=== PATIENT | female | born 1945 | race Two or more races ===

== ENCOUNTER 2017-02-22 11:21 | Inpatient (IN) | payer MEDICARE, OTHER ==
[~2017-02-22] VITALS: Ht 162.6 cm; Wt 66.0 kg
[~2017-02-22 11:21] MED LIST: SIMV10TA6 PO; TRAM50TA2
[2017-02-22] MEDS ORDERED: IV NS 0.9% 1,000 ML ONE (12:00)
[2017-02-22] MEDS ORDERED: ONDANSETRON HCL/PF 4 MG/2 ML VIAL ONE ×2 (12:00→21:51)
[2017-02-22] MEDS ORDERED: IV SET PRIMARY 1 EA INFUS.SET MC ONE (12:00)
[2017-02-22] MEDS ORDERED: ONDANSETRON HCL/PF 4 MG/2 ML VIAL IVP ONE (12:00)
[2017-02-22] MEDS ORDERED: MORPHINE SULFATE INJ 2 MG/ML DISP.SYRIN IV ONE ×2 (12:00→14:00)
[2017-02-22] MEDS ORDERED: MORPHINE SULFATE INJ 4 MG/ML DISP.SYRIN ONE (12:00)
[2017-02-22] MEDS ORDERED: IV NS 0.9% 1,000 ML BAG IV ONE (12:00)
[2017-02-22 12:08] LABS: BASOPHILS # (AUTO) 0.1 /CMM (0.0-0.2); BASOPHILS % (AUTO) 0.6 % (0.0-2.0); EOSINOPHILS % (AUTO) 0.1 % (0.0-6.0); HEMATOCRIT 42 % (33-45); HEMOGLOBIN 13.9 g/dL (11.5-14.8); LYMPHOCYTES # (AUTO) 0.8 /CMM (0.8-4.8); MEAN CORPUSCULAR HEMOGLOBIN 28 PG (26.0-33.0); MEAN CORPUSCULAR HGB CONC 33 g/dl (31.0-36.0); MEAN CORPUSCULAR VOLUME 87 fL (82-100); MONOCYTES # (AUTO) 0.7 /CMM (0.1-1.30); MONOCYTES % (AUTO) 5.2 % (2.0-12.0); NEUTROPHILS # (AUTO) 11.5 /CMM (1.8-8.9); NEUTROPHILS % (AUTO) 88.1 % (43.0-81.0); PLATELET COUNT (AUTO) 208 /CMM (150-450); RDW COEFFICIENT OF VARIATION 13.5 (11.5-15.0); RED BLOOD CELL COUNT(AUTO) 4.88 MIL/uL (4.0-5.2); WHITE BLOOD COUNT (AUTO) 13.1 K/uL (4.3-11.0)
--- NOTE | 2017-02-22 12:09 | NUR ---
LINE STARTED ON R AC G 18, BLOOD AND CULTURES DRAWN FROM LINE AND SENT TO LAB
[2017-02-22 12:21] LABS: CALCIUM, SERUM 8.9 mg/dL (8.5-10.1); CREATININE 1.3 mg/dL (0.6-1.3); POTASSIUM 3.5 mmol/L (3.5-5.1)
[2017-02-22 12:22] LABS: INR 0.97 (0.87-1.13); PROTHROMBIN TIME 10.1 SECS (9.5-12.7)
[2017-02-22 12:25] LABS: ALBUMIN 3.5 g/dL (3.4-5.0); BILIRUBIN,DIRECT 0.2 mg/dL (0.0-0.2)
[2017-02-22 12:33] LABS: LACTIC ACID 0.7 mmol/L (0.4-2.0)
[2017-02-22] MEDS ORDERED: CEFTRIAXONE 1GM BAG (ER ONLY) 1 GM/50 ML PIGGYBACK IV ONE (13:00)
[2017-02-22] MEDS ORDERED: CEFTRIAXONE 1GM BAG (ER ONLY) 50 ML IV ONE (13:06)
[2017-02-22] MEDS ORDERED: IV SET PRIMARY PUMP SET 1 EA INFUS.SET MC ONE ×2 (13:06→14:41)
[2017-02-22 13:18] LABS: APPEARANCE,URINE Cloudy (CLEAR); BILIRUBIN,URINE Negative (NEGATIVE); BLOOD, URINE Moderate Ery/uL (NEGATIVE); COLOR,URINE Dark (YELLOW); KETONES,URINE Negative (NEGATIVE); LEUKOCYTE ESTERASE ,URINE Small (NEGATIVE); NITRITE, URINE Negative (NEGATIVE); PROTEIN,URINE >=300 mg/dl (NEGATIVE); UGLUCOSE Negative (NEGATIVE)
[2017-02-22] MEDS ORDERED: ACET-868 PO (13:26)
[2017-02-22] MEDS ORDERED: IBUP-1481 PO (13:26)
[2017-02-22] MEDS ORDERED: BENA20TA2 PO (13:26)
[2017-02-22] MEDS ORDERED: BACL10TA PO (13:26)
--- NOTE | 2017-02-22 13:26 | NUR ---
CALLED NURSING SUP. FOR MS BED
--- NOTE | 2017-02-22 13:26 | NUR ---
[facility] PAGED, DR. JHON BAUER CONTROL SYSTEMS ENGINEER
[2017-02-22 13:27] LABS: ADD URINE CULTURE YES; BACTERIA,URINE 2+ /HPF (None Seen); SQUAMOUS EPITHELIAL CELL,UR Many /HPF (None Seen); WBC,URINE 81-100 /HPF (0-3)
--- NOTE | 2017-02-22 13:52 | NUR ---
REPORT GIVEN TO TALAT. PT AWAITING TRANSFER TO FLOOR.
[2017-02-22] MEDS ORDERED: HYDROCODONE/APAP 5/325MG 1 EACH TABLET PO PRN (14:00)
[2017-02-22] MEDS ORDERED: MAG HYDROX/AL HYDROX/SIMETH 30 ML UDC PO PRN (14:00)
[2017-02-22] MEDS ORDERED: Z GUARD REMEDY 2 OZ OINT TP PRN (14:00)
[2017-02-22] MEDS ORDERED: ZOLPIDEM TARTRATE 5 MG TABLET PO PRN (14:00)
[2017-02-22] MEDS ORDERED: ONDANSETRON HCL/PF 4 MG/2 ML VIAL IVP PRN (14:00)
[2017-02-22] MEDS ORDERED: MORPHINE SULFATE INJ 2 MG/ML DISP.SYRIN IV PRN (14:00)
[2017-02-22] MEDS ORDERED: MAGNESIUM HYDROXIDE 30 ML UDC PO PRN (14:00)
[2017-02-22] MEDS: IV NS 0.9% 1,000 ML IV PRN (14:49)
[2017-02-22 14:51] VITALS: BP 156/71
--- NOTE | 2017-02-22 15:09 | NUR ---
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 A/O3, vital signs recorded, blood pressure elevated but has not taken morning bp medications. Skin intact, no redness seen. IV fluids infusing at 75ml/hr (normal saline), has order for rocephin but first dose already hung at 1328 in emergency room. Bed in low setting, side rails X3 in upright position. Patient made aware of how to use call light. Will continue to monitor and ensure safety.
[2017-02-22] MEDS: KETOROLAC TROMETHAMINE INJ 30 MG/ML VIAL IV PRN (15:59)
[2017-02-22 16:00] VITALS: BP 128/60
[2017-02-22] MEDS: BENAZEPRIL HCL 20 MG TABLET PO SCH (16:00)
[2017-02-22] MEDS: BACLOFEN (10 MG) 10 MG TABLET PO SCH (16:00)
--- NOTE | 2017-02-22 16:08 | NUR ---
MS/RN Pain Complaining of back pain 05/24. Torodol 30mg given IV, will monitor effectiveness.
--- NOTE | 2017-02-22 18:29 | NUR ---
MS/RN End note Patient remains stable at this time. IV fluids infusing at 75ml/hr, no signs of infiltration seen. All medications administered as ordered. Will continue to monitor and endorse to nurse plastics.
--- NOTE | 2017-02-22 19:50 | NUR ---
rn initial notes: received report from kaleigh. pt resting, a/ox3, on room air, no apparent distress noted, iv access infusing with ns at 75ml/hr, ble kept offloaded, safety precautions for fall initiated call light in reach, will continue to monitor
[2017-02-22 19:59] VITALS: BP 104/54
[2017-02-22 20:00] VITALS: BP 104/54
--- NOTE | 2017-02-22 20:00 | NUR ---
ms rn notes: noted temp 99.8, removed pt excess blanket and ice pack provided to the pt, will recheck temp
[2017-02-22] MEDS: ACETAMINOPHEN 325 MG TABLET PO PRN (20:05)
--- NOTE | 2017-02-22 20:06 | NUR ---
ms rn notes: pt c/o head ache 11/24 requesting for tylenol, prn tylenol 650 mg tab po administered to the pt at this time, will continue to monitor and reassess
--- NOTE | 2017-02-22 21:34 | NUR ---
MS RN NOTES: PT VOMITED TWICE, NOTED 50CC OF EMESIS, LAST ZOFRAN WAS 3HRS AGO, NO OTHER MEDICATION FOR N/V, CONTACTED DR BARNARD FARM MACHINERY ERECTOR AWAITING FOR CALLBACK, ALSO TOLD PT NOT TO EAT OR DRINK FOR THE MEAN TIME SINCE SHE'S VOMITING, PT ON IVF NS AT 75ML/HR, ALSO ORAL CARE PROVIDED, RECHECK TEMP AND IT WAS 98.2
[2017-02-22 21:36] VITALS: BP 122/66
--- NOTE | 2017-02-22 21:39 | NUR ---
MS RN NOTES: RECEIVED CALL FROM DR BARNARD, RELAYED ABOUT PT'S VOMITING, PER DR BARNARD TO CHANGED ZOFRAN 4MG TO Q4HRS, FIRST DOSE TO BE GIVEN NOW
[2017-02-22] MEDS: ONDANSETRON HCL/PF 4 MG/2 ML VIAL IV PRN (21:57)
--- NOTE | 2017-02-22 21:58 | NUR ---
MS RN NOTES: PRN ZOFRAN 4MG IVP ADMINISTERED TO THE PT FOR N/V, WILL CONTINUE TO MONITOR AND REASSESS
--- NOTE | 2017-02-22 23:00 | NUR ---
ms rn notes: pt stated she's not throwing up anymore, however her concern now is the coughing, pt denies any abdominal or lower back pain, denies any head ache, will continue to monitor
--- NOTE | 2017-02-23 01:17 | NUR ---
ms rn notes: received call from [facility], lab, result of blood culture is positive, gram (-) rods, 1st bottle out of 4, relayed to md dr espana, pt on rocephin 1gm iv q24hrs, afebrile, vs stable, no chills noted, no new orders received
[2017-02-23] MEDS ORDERED: ONDANSETRON HCL/PF 4 MG/2 ML VIAL ONE (01:50)
[2017-02-23] MEDS: ONDANSETRON HCL/PF 4 MG/2 ML VIAL IV PRN ×3 (02:00→18:21)
--- NOTE | 2017-02-23 02:00 | NUR ---
RN NOTES: PT C/O NAUSEA AND VOMITING, PRN ZOFRAN 4MG IVP ADMINISTERED TO HTE PT AT THIS TIME, WILL CONTINUE TO MONITOR AND REASSESS
[2017-02-23] MEDS: IV NS 0.9% 1,000 ML IV PRN (04:31)
--- NOTE | 2017-02-23 04:49 | NUR ---
ms rn notes: received call from [facility], blood culture result came back positive, gram negative rods 2nd bottle, 2 out of 4, contacted , pt on rocephin 1gm iv q24h, afebrile, vs stable, no chills noted, awaiting for call back
--- NOTE | 2017-02-23 05:51 | NUR ---
MS RN NOTES: ASSISTED PT TO THE BATHROOM, ENCOURAGE PT FOR MORNING CARE
[2017-02-23 06:10] VITALS: BP 114/60
[2017-02-23] MEDS: KETOROLAC TROMETHAMINE INJ 30 MG/ML VIAL IV PRN (06:11)
--- NOTE | 2017-02-23 06:11 | NUR ---
MS RN NOTES: PT C/O 05/24 PAIN ON HER LOWER BACK, PRN KETOROLAC 30MG IV ADMINISTERED TO THE PT, EDUCATE PT REGARDING MEDICATION SIDE EFFECT, VS TAKEN AND RECORDED, 114/60 RR 18-20, T 97.9, SPO2 94% ON ROOM AIR, HR 73, WILL CONTINUE TO MONITOR AND REASSESS
[2017-02-23 06:33] LABS: EOSINOPHILS % (AUTO) 0.1 % (0.0-6.0); HEMATOCRIT 35 % (33-45); HEMOGLOBIN 11.4 g/dL (11.5-14.8); LYMPHOCYTES # (AUTO) 0.6 /CMM (0.8-4.8); LYMPHOCYTES % (AUTO) 6.4 % (20.0-44.0); MEAN CORPUSCULAR HEMOGLOBIN 29 PG (26.0-33.0); MEAN CORPUSCULAR HGB CONC 33 g/dl (31.0-36.0); MEAN CORPUSCULAR VOLUME 87 fL (82-100); MONOCYTES # (AUTO) 0.6 /CMM (0.1-1.30); MONOCYTES % (AUTO) 6.3 % (2.0-12.0); NEUTROPHILS # (AUTO) 8.7 /CMM (1.8-8.9); NEUTROPHILS % (AUTO) 87.2 % (43.0-81.0); PLATELET COUNT (AUTO) 194 /CMM (150-450); RDW COEFFICIENT OF VARIATION 14.7 (11.5-15.0); RED BLOOD CELL COUNT(AUTO) 4.01 MIL/uL (4.0-5.2)
--- NOTE | 2017-02-23 06:42 | NUR ---
ms rn closing notes: pt in bed, awake, remains afebrile, no nausea and vomiting noted at this time, last zofran given at 0200am. pain medication administered at 0611am for lower back pain. right ac iv access remains infusing with ns at 75ml/hr. ble kept offloaded. awaiting result of urine culture and final result of blood culture. vs remains stable, needs attended. bed brakes remains engaged, bed in lowest position, call light in reach. will endorse to day rn for tal.
[2017-02-23 07:01] LABS: CALCIUM, SERUM 8.4 mg/dL (8.5-10.1); CREATININE 1.1 mg/dL (0.6-1.3); MAGNESIUM 2.1 mg/dL (1.8-2.4); PHOSPHORUS 3.3 mg/dL (2.5-4.9); POTASSIUM 3.9 mmol/L (3.5-5.1)
--- NOTE | 2017-02-23 07:16 | NUR ---
MS/RN INITIAL NOTES PATIENT RECEIVED IN BED AWAKE AND RESTING AT MODERATE HIGH BACKREST POSITION. ALERT AND ORIENTED X 3, NO VERBALIZATION OF PAIN, NAUSEA OR VOMITING AT THIS TIME. ON ROOM AIR, BREATHING WELL WITH NO SOB . IV ACCESS ON LEFT AC INTACT AND PATENT WITH IVF OF NS @ 75ML/HR INFUSING WELL. BLE OFFLOADED. CALL LIGHT WITHIN REACH. BED LOCKED AND IN LOW POSITION. ALL SAFETY PRECAUTIONS MAINTAINED. WILL CONTINUE TO MONITOR ACCORDINGLY.
[2017-02-23 08:00] VITALS: BP 115/62
[2017-02-23] MEDS: BACLOFEN (10 MG) 10 MG TABLET PO SCH ×3 (08:20→16:40)
[2017-02-23] MEDS: BENAZEPRIL HCL 20 MG TABLET PO SCH (08:21)
[2017-02-23] MEDS: PANTOPRAZOLE 40 MG TABLET.DR PO SCH (08:21)
[2017-02-23] MEDS ORDERED: BENAZEPRIL HCL 20 MG TABLET PO SCH (09:00)
[2017-02-23] MEDS: MORPHINE SULFATE INJ 2 MG/ML DISP.SYRIN IV PRN ×2 (11:55→18:19)
[2017-02-23] MEDS ORDERED: CEFTRIAXONE 1 G in IV D5W 50 ML IV SCH (13:00)
[2017-02-23] MEDS ORDERED: SECONDARY IV SET 1 EA INFUS.SET MC ONE (15:00)
[2017-02-23 16:00] VITALS: BP 116/69
[2017-02-23 16:09] VITALS: BP 116/69
--- NOTE | 2017-02-23 19:15 | NUR ---
MS/RN CLOSING NOTES PATIENT IN BED AWAKE WITH FAMILY AT BEDSIDE. ALERT AND ORIENTED X 3. COMPLAINTS OF NAUSEA BUT NO VOMITING DURING THE DAY, PRN ZOFRAN IV GIVEN WITH GOOD RESULTS. ON ROOM AIR, BREATHING WELL WITH NO SOB THROUGHOUT THE DAY . IV ACCESS ON LEFT AC INTACT AND PATENT WITH IVF OF NS @ 75ML/HR INFUSING WELL. BLE OFFLOADED. CALL LIGHT WITHIN REACH. BED LOCKED AND IN LOW POSITION. ALL SAFETY PRECAUTIONS MAINTAINED. ENDORSED TO BEAVER TRAPPER NURSE TO CONTINUE CARE.
--- NOTE | 2017-02-23 19:25 | NUR ---
RN NOTES RECEIVED PT AWAKE, NO SOB, NOT IN DISTRESS, TOLERATING ROOM AIR WITH GOOD SATURATION. IV ACCESS ON RIGHT AC PATENT AND INTACT WITH ONGOING IVF INFUSING WELL. PT DENIES PAIN, NAUSEA AND VOMITING AT THIS TIME. BOTH LOWER EXTREMITY WITH DVT PUMP ON. SAFETY PRECAUTIONS OBSERVED. ALL NEEDS ATTENDED. KEPT COMFORTABLE IN BED. WILL CONTINUE TO MONITOR PT.
[2017-02-23 20:00] VITALS: BP 115/53
--- NOTE | 2017-02-23 20:00 | NUR ---
RN NOTES TEMP 99.8, COOLING MEASURES STARTED. PT DENIES ANY PAIN AND DISCOMFORT. WILL CONTINUE TO MONITOR PT.
[2017-02-23] MEDS: ACETAMINOPHEN 325 MG TABLET PO PRN (20:36)
--- NOTE | 2017-02-23 20:36 | NUR ---
RN NOTES TEMP RECHECKED 100.1, TYLENOL 650 MG TAB GIVEN PO AND CONTINOUS COOLING MEASURES GIVEN. WILL CONTINUE TO MONITOR PT.
--- NOTE | 2017-02-23 21:45 | NUR ---
RN NOTES PT WAS SEEN AND EXAMINED BY DR AL, ID, MADE AWARE HAD 100.1 FEVER WITH LATEST TEMP OF 99.2 NOW. NEW ORDERS RECEIVED, ROCEPHIN INCREASED TO 2 MG AND WILL DO BLOOD CULTURE IN AM.
[2017-02-23 22:00] VITALS: BP 115/53
[2017-02-24] MEDS: IV NS 0.9% 1,000 ML IV PRN (05:32)
--- NOTE | 2017-02-24 06:08 | NUR ---
RN NOTES PT COMPLAINS OF HEADACHE 04/23, TEMP 97.7, NORCO 5/325 MG TAB GIVEN PO. WILL CONTINUE TO MONITOR PT.
[2017-02-24 06:47] LABS: BASOPHILS % (AUTO) 0.3 % (0.0-2.0); EOSINOPHILS % (AUTO) 0.4 % (0.0-6.0); HEMATOCRIT 36 % (33-45); HEMOGLOBIN 11.9 g/dL (11.5-14.8); LYMPHOCYTES % (AUTO) 14.2 % (20.0-44.0); MEAN CORPUSCULAR HEMOGLOBIN 29 PG (26.0-33.0); MEAN CORPUSCULAR HGB CONC 33 g/dl (31.0-36.0); MEAN CORPUSCULAR VOLUME 87 fL (82-100); MONOCYTES # (AUTO) 0.5 /CMM (0.1-1.30); MONOCYTES % (AUTO) 7.5 % (2.0-12.0); NEUTROPHILS # (AUTO) 5.2 /CMM (1.8-8.9); NEUTROPHILS % (AUTO) 77.6 % (43.0-81.0); PLATELET COUNT (AUTO) 215 /CMM (150-450); RDW COEFFICIENT OF VARIATION 14.6 (11.5-15.0); RED BLOOD CELL COUNT(AUTO) 4.17 MIL/uL (4.0-5.2); WHITE BLOOD COUNT (AUTO) 6.8 K/uL (4.3-11.0)
[2017-02-24 06:59] LABS: CALCIUM, SERUM 8.8 mg/dL (8.5-10.1); CREATININE 1.1 mg/dL (0.6-1.3); POTASSIUM 3.7 mmol/L (3.5-5.1)
--- NOTE | 2017-02-24 07:15 | NUR ---
RN NOTES PT ASLEEP, HOB ELEVATED, BREATHING REGULAR AND UNLABORED, TOLERATING ROOM AIR WITH GOOD SATURATION. VITAL SIGNS STABLE, AFEBRILE, TEMP 97.7. NO EPISODE OF NAUSEA AND VOMITING. KEPT PAIN AT TOLERABLE LEVEL. ALL NEEDS ATTENDED. PT ABLE TO AMBULATE GOING TO THE BATHROOM. FALL PRECAUTION OBSERVED. WILL ENDORSE TO MORNING RN FOR CONTINUITY OF CARE.
--- NOTE | 2017-02-24 07:30 | NUR ---
MS RN AM NOTES PT AWAKE, AAOX4, ON RA,NO SOB, NOT IN DISTRESS, DENIES PAIN, AFEBRILE, IV ACCESS ON RIGHT AC PATENT AND INTACT WITH ONGOING IVF INFUSING WELL, SITE CLEAR. NO NAUSEA AND VOMITING AT THIS TIME. ON CARDIAC DIET. BOTH LOWER EXTREMITY WITH DVT PUMP ON. SAFETY PRECAUTIONS OBSERVED. BED LOW LOCKED, CALL LIGHT WITHIN REACH, WILL CONTINUE TO MONITOR PT. Addendum: 02/24/17 at 1823 by JASON BUSH RN CORRECTION: RAC 18G AND LFA 22G IN PLACE.
[2017-02-24 08:00] VITALS: BP 120/69
[2017-02-24] MEDS: BENAZEPRIL HCL 20 MG TABLET PO SCH (08:49)
[2017-02-24] MEDS: PANTOPRAZOLE 40 MG TABLET.DR PO SCH (08:49)
[2017-02-24] MEDS: BACLOFEN (10 MG) 10 MG TABLET PO SCH ×3 (08:49→16:49)
--- NOTE | 2017-02-24 09:30 | NUR ---
MS RN NOTES ADMINISTERED DUE MEDS.
[2017-02-24] MEDS: CEFTRIAXONE 2 G in IV D5W 50 ML IV SCH (12:29)
[2017-02-24] MEDS: ONDANSETRON HCL/PF 4 MG/2 ML VIAL IV PRN (12:29)
--- NOTE | 2017-02-24 12:29 | NUR ---
MS RN NOTES STARTED ROCEPHIN IV.
[2017-02-24 15:52] VITALS: BP 114/64
[2017-02-24 16:08] VITALS: BP 114/64
[2017-02-24 18:00] VITALS: BP 114/64
--- NOTE | 2017-02-24 18:19 | NUR ---
MS RN CLOSING NOTES PT RESTING IN BED, SON AT BEDSIDE, AWAKE, AAOX4, ON RA,NO SOB, NOT IN DISTRESS, DENIES PAIN, AFEBRILE, IV ACCESS ON RIGHT AC FLUSHES WELL, LEFT AC 22G PATENT AND INTACT WITH ONGOING IVF INFUSING WELL, BOTH SITE CLEAR. NO NAUSEA AND VOMITING AT THIS TIME. ON CARDIAC DIET. BOTH LOWER EXTREMITY WITH DVT PUMP ON. SAFETY PRECAUTIONS OBSERVED. BED LOW LOCKED, CALL LIGHT WITHIN REACH, ALL NEEDS MET. FOR POSSIBLE DC MARISSA. WILL ENDORSE TO NEXT SHIFT FOR FRANKLIN.
--- NOTE | 2017-02-24 19:18 | NUR ---
RN NOTES RECEIVED PT ASLEEP, BREATHING REGULAR AND UNLABORED, NO SOB, NOT IN DISTRESS, TOLERATING ROOM AIR WITH GOOD SATURATION. IV ACCESS ON RIGHT AC AND LEFT AC PATENT AND INTACT WITH ONGOING IVF INFUSING WELL. PT DENIES ANY PAIN, NAUSEA AND VOMITING AT THIS TIME. BOTH LOWER EXTREMITY WITH DVT PUMP ON. SAFETY PRECAUTIONS OBSERVED. BED LOW LOCKED, WITH CALL LIGHT WITH IN REACH. ALL NEEDS ATTENDED. KEPT COMFORTABLE IN BED. WILL CONTINUE TO MONITOR PT.
[2017-02-24 20:00] VITALS: BP 131/54
[2017-02-24] MEDS: ACETAMINOPHEN 325 MG TABLET PO PRN (21:30)
--- NOTE | 2017-02-24 21:30 | NUR ---
RN NOTES PT COMPLAINS OF HEADACHE, TYLENOL 650 MG TAB GIVEN PO. WILL CONTINUE TO MONITOR PT.
[2017-02-24 22:00] VITALS: BP 131/54
[2017-02-25] MEDS: IV NS 0.9% 1,000 ML IV PRN (05:22)
[2017-02-25 06:22] LABS: BASOPHILS % (AUTO) 0.4 % (0.0-2.0); EOSINOPHILS # (AUTO) 0.1 /CMM (0.0-0.7); EOSINOPHILS % (AUTO) 0.9 % (0.0-6.0); HEMATOCRIT 33 % (33-45); HEMOGLOBIN 10.9 g/dL (11.5-14.8); LYMPHOCYTES # (AUTO) 1.1 /CMM (0.8-4.8); LYMPHOCYTES % (AUTO) 16.6 % (20.0-44.0); MEAN CORPUSCULAR HEMOGLOBIN 28 PG (26.0-33.0); MEAN CORPUSCULAR HGB CONC 33 g/dl (31.0-36.0); MEAN CORPUSCULAR VOLUME 87 fL (82-100); MONOCYTES # (AUTO) 0.7 /CMM (0.1-1.30); MONOCYTES % (AUTO) 10.1 % (2.0-12.0); NEUTROPHILS # (AUTO) 4.9 /CMM (1.8-8.9); PLATELET COUNT (AUTO) 210 /CMM (150-450); RDW COEFFICIENT OF VARIATION 14.5 (11.5-15.0); RED BLOOD CELL COUNT(AUTO) 3.84 MIL/uL (4.0-5.2); WHITE BLOOD COUNT (AUTO) 6.8 K/uL (4.3-11.0)
[2017-02-25 06:31] LABS: CALCIUM, SERUM 8.6 mg/dL (8.5-10.1); CREATININE 0.9 mg/dL (0.6-1.3); POTASSIUM 3.2 mmol/L (3.5-5.1)
--- NOTE | 2017-02-25 06:38 | NUR ---
RN NOTES PT AWAKE, HOB ELEVATED, NO SOB, NOT IN DISTRESS, TOLERATING ROOM AIR WITH GOOD SATURATION. VITAL SIGNS STABLE, AFEBRILE. NO EPISODE OF NAUSEA AND VOMITING. KEPT PAIN AT TOLERABLE LEVEL. FOR POSSIBLE DISCHARGE TODAY. ALL NEEDS ATTENDED. PT ABLE TO AMBULATE OUTSIDE OF HER ROOM. FALL PRECAUTION OBSERVED. WILL ENDORSE TO MORNING RN FOR CONTINUITY OF CARE.
--- NOTE | 2017-02-25 07:30 | NUR ---
MS RN AM NOTES PT AWAKE, AAOX4, ON RA,NO SOB, NOT IN DISTRESS, DENIES PAIN, AFEBRILE, IV ACCESS ON LAC 22G INTACT WITH ONGOING IVF INFUSING WELL, SITE CLEAR. NO NAUSEA AND VOMITING AT THIS TIME. ON CARDIAC DIET. AMBULATORY TO BATHROOM. BOTH LOWER EXTREMITY WITH DVT PUMP ON. SAFETY PRECAUTIONS OBSERVED. BED LOW LOCKED, CALL LIGHT WITHIN REACH, WILL CONTINUE TO MONITOR PT.
[2017-02-25 08:00] VITALS: BP 139/71
[2017-02-25 08:23] VITALS: BP 139/71
[2017-02-25] MEDS: BACLOFEN (10 MG) 10 MG TABLET PO SCH ×3 (08:36→16:50)
[2017-02-25] MEDS: PANTOPRAZOLE 40 MG TABLET.DR PO SCH (08:36)
[2017-02-25] MEDS: BENAZEPRIL HCL 20 MG TABLET PO SCH (08:37)
[2017-02-25] MEDS ORDERED: POTASSIUM CHLORIDE 20 MEQ TAB.PRT.SR PO ONE (09:00)
--- NOTE | 2017-02-25 09:30 | NUR ---
MS RN NOTES ADMINISTERED DUE MEDS
[2017-02-25] MEDS: CEFTRIAXONE 2 G in IV D5W 50 ML IV SCH (13:07)
[2017-02-25] MEDS: ACETAMINOPHEN 325 MG TABLET PO PRN (15:35)
[2017-02-25 16:00] VITALS: BP 138/68
[2017-02-25 18:10] VITALS: BP 138/68
== END 2017-02-25 18:13 | disposition home or self-care (01) | DRG 690 ==
LOC: ER 11:25 → MEDSG2 13:49
PROVIDERS: ADMIT Family Medicine; ATTEND Family Medicine
DX: N10 Acute pyelonephritis (principal); R78.81 Bacteremia; I10 Essential (primary) hypertension; E86.0 Dehydration; G89.29 Other chronic pain; B96.20 Unspecified Escherichia coli [E. coli] as the cause of diseases classified elsewhere; K21.9 Gastro-esophageal reflux disease without esophagitis; Z79.899 Other long term (current) drug therapy; N13.30 Unspecified hydronephrosis
CPT/HCPCS: 36415; 71010-TC; 80048-TC; 80076-TC; 81000-TC; 83605-TC; 83690-TC; 83735-TC; 84100-TC; 85025-TC; 85730-TC; 87040-TC; 87081-TC; 87086-TC; 87186-TC; A4606; J0696; J1885; J2270; J2405; J7030; J7060; Z7610

== ENCOUNTER 2021-11-24 08:52 | Emergency (ER) | payer MEDICARE, OTHER ==
[~2021-11-24] VITALS: Ht 160 cm; Wt 65.8 kg
[~2021-11-24 08:52] MED LIST changes: +ACET-868 PO; +BACL10TA PO; +BENA20TA9 PO; +IBUP-1953 PO; -SIMV10TA6 PO; -TRAM50TA2
--- NOTE | 2021-11-24 09:30 | NUR ---
bib home , c/o dizzy for 2 wks, now getting worse. denies any chest pain or sob. awaiting med eval.
--- NOTE | 2021-11-24 09:32 | NUR ---
IV LINE ESTABLISHED. BLOOD COLLECTED AND SENT TO LAB
[2021-11-24] MEDS ORDERED: MECLIZINE HCL 12.5 MG TABLET ONE (09:43)
[2021-11-24] MEDS ORDERED: ONDANSETRON HCL/PF 4 MG/2 ML VIAL ONE (09:43)
--- NOTE | 2021-11-24 09:45 | NUR ---
SAMMY DENNEY AT BEDSIDE FOR EKG
[2021-11-24 09:54] LABS: BASOPHILS # (AUTO) 0.1 K/uL (0.0-0.2); BASOPHILS % (AUTO) 1.1 % (0.0-2.0); EOSINOPHILS % (AUTO) 3.3 % (0.0-6.0); HEMATOCRIT 45 % (33-45); HEMOGLOBIN 14.5 g/dL (11.5-14.8); LYMPHOCYTES # (AUTO) 1.6 K/uL (0.8-4.8); LYMPHOCYTES % (AUTO) 25.8 % (20.0-44.0); MEAN CORPUSCULAR HGB CONC 33 g/dl (31.0-36.0); MEAN CORPUSCULAR VOLUME 89 fL (82-100); MONOCYTES # (AUTO) 0.5 K/uL (0.1-1.30); NEUTROPHILS # (AUTO) 3.9 K/uL (1.8-8.9); NEUTROPHILS % (AUTO) 61.8 % (43.0-81.0); PLATELET COUNT (AUTO) 240 K/uL (150-450); RED BLOOD CELL COUNT(AUTO) 5.01 MIL/uL (4.0-5.2); WHITE BLOOD COUNT (AUTO) 6.3 K/uL (4.3-11.0)
[2021-11-24] MEDS ORDERED: MECLIZINE HCL 12.5 MG TABLET PO ONE (10:00)
[2021-11-24] MEDS ORDERED: ONDANSETRON HCL/PF 4 MG/2 ML VIAL IVP ONE (10:00)
[2021-11-24] MEDS ORDERED: IV NS 0.9% 1,000 ML BAG IV ONE (10:00)
[2021-11-24 10:11] LABS: ALANINE AMINOTRANSFERASE 19 U/L (12-78); ALKALINE PHOSPHATASE 62 U/L (46-116); ASPARTATE AMINOTRANSFERASE 18 U/L (15-37); BILIRUBIN,DIRECT 0.1 mg/dL (0.0-0.2); BILIRUBIN,TOTAL 0.4 mg/dL (0.2-1.0); CALCIUM, SERUM 10.1 mg/dL (8.5-10.1); CARBON DIOXIDE 28 mmol/L (21-32); CHLORIDE 104 mmol/L (98-107); CREATININE 0.9 mg/dL (0.6-1.3); GLUCOSE 80 mg/dL (74-106); POTASSIUM 4.1 mmol/L (3.5-5.1); SODIUM SERUM 139 mmol/L (136-145); TOTAL PROTEIN, SERUM 8.5 g/dL (6.4-8.2); UREA NITROGEN, BLOOD 15 mg/dL (7-18)
--- NOTE | 2021-11-24 10:20 | NUR ---
XRAY AT BEDSIDE
[2021-11-24] MEDS ORDERED: MECL-159 PO (11:32)
--- NOTE | 2021-11-24 11:45 | NUR ---
IV removed. Catheter intact and site benign. Pressure and 4x4 applied to site. No bleeding noted.
--- NOTE | 2021-11-24 11:55 | NUR ---
Patient discharged to home in stable condition. Written and verbal after care instructions given. Patient verbalizes understanding of instruction.
[2021-11-24 11:56] VITALS: BP 112/70
== END 2021-11-24 11:57 | disposition home or self-care (01) ==
LOC: ER 09:07
DX: R42 Dizziness and giddiness (principal); H55.00 Unspecified nystagmus; E78.00 Pure hypercholesterolemia, unspecified; Z79.1 Long term (current) use of non-steroidal anti-inflammatories (NSAID); Z79.899 Other long term (current) drug therapy
CPT/HCPCS: 36415; 70450; 71045; 80048; 80076; 82962; 84484; 85025; 93005; 96361; 96374; 99285; J2405; J8597